=== PATIENT | male | born 1955 | race Caucasian/White ===

== ENCOUNTER → 2019-09-09 | Outpatient (CLI) | payer BC ==
--- NOTE | 2019-09-09 11:49 | MR ---
EXAMINATION TYPE: MR brain wo con DATE OF EXAM: 09/09/2019 COMPARISON: NONE HISTORY: CVA/TIA, confusion TECHNIQUE: Multiplanar, multisequence imaging of the brain and brainstem is performed without IV cont rast. FINDINGS: Diffusion weighted images demonstrate no evidence of a recent infarct or other diffusion abnormality. There is no worrisome extra-axial fluid collection. Mild ventricular and sulcal prominence. There are scattered foci of T2 hyperintensity seen throughout the white matter bilaterally. Approximately 60-7 0 scattered lesions are seen with relative sparing of the upper tentorial structures. Lesions are non specific in appearance and distribution are most likely on basis of proximal or proximal vessel is[place] juan change in patient this age. Midline structures demonstrate normal morphology. The craniocervical junction appears within normal limits. Normal vascular flow voids are present. The visualized sinuses are clear and the globes are i ntact. IMPRESSION: Mild diffuse cerebral atrophy and moderate chronic small vessel ischemic change. No evide nce of a recent infarct.
--- NOTE | 2019-09-09 15:26 | MR ---
EXAMINATION TYPE: MR angio head wo/neck wo/w con DATE OF EXAM: 09/09/2019 COMPARISON: None HISTORY: CVA/TIA, confusion TECHNIQUE: Time of flight images focusing on the [place] and neck were performed without con trast. Neck MRI performed with contrast. 2-D and 3-D postprocessing imaging is performed on an [employer] workstation. FINDINGS: [place] MRA: The vertebral arteries are patent. Internal carotid arteries are dennison nt. No evident aneurysm, dissection, or embolus. Normal [place] MRA Neck MRA: Vertebral arteries, transverse aorta, left and right subclavian arteries, common carotid, i nternal and external carotid arteries, innominate artery are patent. No evident carotid stenosis. [place] tebral arteries are codominant. Origin of the left subclavian artery not included on the exam. Postpr ocessing not optimal. IMPRESSION: No evident carotid stenosis.
== END | disposition home or self-care (01) ==
LOC: RADMRIMAIN 10:04
PROVIDERS: ATTEND Psychiatry & Neurology Neurology
DX: G31.89 Other specified degenerative diseases of nervous system (principal); I67.82 Cerebral ischemia
CPT/HCPCS: 70544; 70549; 70551

== ENCOUNTER → 2023-03-07 | Outpatient (CLI) | payer MEDICARE ==
--- NOTE | 2023-03-08 07:22 | MR ---
EXAMINATION TYPE: MR lumbar spine wo con DATE OF EXAM: 03/07/2023 COMPARISON: None HISTORY: Low back pain that radiates down left leg. CONTRAST: 0 mL intravenous Gadavist. TECHNIQUE: Multiplanar, multisequence images of the lumbar spine were acquired. FINDINGS: L5-S1: Large Broad-based disc bulge is present with mild anterior thecal sac contact. No exiting nerv e root effacement is evident. No AP spinal canal stenosis is present. Neural foramen are moderately n arrowed. There is loss of disc height and disc desiccation present. L4-L5: Mild disc bulge has the thecal sac flattening. No AP spinal canal stenosis present. Minimal li gamentum flavum laxity is present. Neural foramen are patent. L3-L4: Mild disc bulge is present with anterior thecal sac flattening. No AP spinal canal stenosis is present. There is mild right foraminal narrowing. L2-L3: No significant disc bulge or disc herniation. No spinal canal stenosis. No foraminal stenosi s. . L1-L2: No significant disc bulge or disc herniation. No spinal canal stenosis. Neural foramen are p atent. T12-L1: No significant disc bulge or disc herniation. No spinal canal stenosis. No foraminal stenos is. Cord terminates at the T12-L1 level IMPRESSION: 1. Marked broad-based disc bulging with mild anterior thecal sac compression at L5-S1. Moderate bilat eral foraminal stenosis. 2. Mild disc bulging at L4-5 and L3-4 with intrathecal sac contact without stenosis. 3. Some mild left L3-4 foraminal narrowing from disc bulging is present.
== END | disposition home or self-care (01) ==
LOC: RADMRIMAIN 10:26
PROVIDERS: ATTEND Nurse Practitioner Family
DX: M47.26 Other spondylosis with radiculopathy, lumbar region (principal); M51.16 Intervertebral disc disorders with radiculopathy, lumbar region; M99.73 Connective tissue and disc stenosis of intervertebral foramina of lumbar region
CPT/HCPCS: 72148